=== PATIENT | female | born 1980 | race Caucasian/White ===

== ENCOUNTER 2018-08-11 21:49 | Emergency (ER) | payer OTHER ==
[2018-08-11 21:53] VITALS: BMI 29.7
--- NOTE | 2018-08-11 22:00 | PDOC ---
Rapid Medical Evaluation Chief Complaint: Pain Time Seen by Provider: 08/11/18 21:50 Medical Evaluation: Allergies Allergy/AdvReac Type Severity Reaction Status Date / Time No Known Allergies Allergy Verified 07/14/13 05:59 08/11/18 21:55 S: 38 year old female with generalized abdominal pain x 1 day. O: patient alert o3, generalized pain, doubled over in pain A: abdominal pain P: UA UCX urine . patient to the ER for further management of care. Discharge Disposition - Diagnosis Abdominal pain Qualifiers: Abdominal location: generalized Qualified Code(s): R10.84 - Generalized abdominal pain - Referrals - Patient Instructions - Post Discharge Activity
[2018-08-11] MEDS ORDERED: ONDANSETRON 4 MG/2 ML VIAL IVPUSH ONE (22:34)
[2018-08-11] MEDS ORDERED: morphine CARPU-JECT 4 MG/1 ML DISP.SYRIN IVPUSH ONE (22:34)
[2018-08-11] MEDS ORDERED: SODIUM CHLORIDE 0.9% 500 ML INFUS.BAG IV ONE (22:36)
[2018-08-11] MEDS ORDERED: morphine SULFATE 4 MG/ML VIAL ONE (23:15)
[2018-08-11] MEDS ORDERED: ONDANSETRON 4 MG/2 ML VIAL ONE (23:16)
[2018-08-12 00:25] LABS: BASO % 0.5 % (0-2.0); EOS % 2.3 % (0-4.5); HEMATOCRIT 40.7 % (32.4-45.2); HEMOGLOBIN 13.5 GM/dL (10.7-15.3); LYMPH % 31.4 % (8-40); MCH 29.9 pg (25.7-33.7); MEAN CELL VOLUME 90.5 fl (80-96); MEAN PLT VOLUME 8.6 fl (7.5-11.1); MONO % 7.5 % (3.8-10.2); NEUT % 58.3 % (42.8-82.8); PLATELET COUNT 365 K/MM3 (134-434); RDW 13.8 % (11.6-15.6); WHITE BLOOD COUNT 11.2 K/mm3 (4.0-10.0)
[2018-08-12 01:10] LABS: ALBUMIN 3.1 g/dl (3.4-5.0); ALK PHOS 76 U/L (45-117); ANION GAP 6 MMOL/L (8-16); BILIRUBIN,TOTAL 0.2 mg/dL (0.2-1); BLOOD UREA NITROGEN 10 mg/dL (7-18); CALCIUM 8.3 mg/dL (8.5-10.1); CHLORIDE 104 mmol/L (98-107); CO2 27 mmol/L (21-32); CREATININE 0.6 mg/dL (0.55-1.3); GLUCOSE,RANDOM 103 mg/dL (74-106); LIPASE 102 U/L (73-393); POTASSIUM 3.5 mmol/L (3.5-5.1); SGOT/AST 15 U/L (15-37); SGPT/ALT 21 U/L (13-61); SODIUM 137 mmol/L (136-145)
[2018-08-12 03:17] LABS: URINE APPEARANCE CLEAR; URINE BILIRUBIN NEGATIVE (NEGATIVE); URINE COLOR YELLOW; URINE GLUCOSE (UA) NEGATIVE (NEGATIVE); URINE KETONE NEGATIVE (NEGATIVE)
[2018-08-12 03:18] LABS: URINE LEUK ESTERASE NEGATIVE (NEGATIVE); URINE NITRITE NEGATIVE (NEGATIVE); URINE PROTEIN N (NEGATIVE); URINE UROBILINOGEN 0.2 mg/dL (0.2-1.0)
--- NOTE | 2018-08-12 03:23 | PDOC ---
Documentation entered by Ashley Reynoso SCRIBE, acting as scribe for Susanna Sanabria MD. History of Present Illness - General Chief Complaint: Pain Stated Complaint: ABDOMINAL PAIN Time Seen by Provider: 08/11/18 21:50 History Source: Patient, Family Exam Limitations: No Limitations - History of Present Illness Initial Comments: 08/11/18 22:55 HPI: 38YOF with significant past medical history of HTN, kidney stones presenting with acute onset of diffuse abdominal pain with associated blt lumbar back pain and yellow concentrated urine. no alleviating or exacerbating factors. She notes taking Ibuprofen 600mg x1 at 7pm ~3 hours ago for her symptoms, without relief. Denies fever, chills, chest pain, SOB, palpitation, dizziness, weakness, N, V, D , bladder and bowel problems, leg swelling, No new changes in medications, took AM HCTZ. no travel history or suspicious food intake or sick contacts. no trauma or exertional activity. she works as elementary school registrar. Allergies: None Past Medical History: HTN (compliant with HCTZ) Social history: Lives with family. No tobacco, ETOH or drug use. Surgical history: Abdominoplasty. Meds: as documented in EMR - hctz 25 mg daily, ibuprofen 600mg prn PMD: Dr. Fiorella Mendez LMP: 07/27/2018 - usually regular, missed her menstrual cycle in 06/2018 ROS: GENERAL/CONSTITUTIONAL: No fever or chills. No weakness. no sweats. HEAD, EYES, EARS, NOSE AND THROAT: No change in vision or hearing. No ear pain or discharge. No sore throat or mouth pain. No difficulty swallowing. No congestion. CARDIOVASCULAR: No chest pain or palpitations, syncope or edema. RESPIRATORY: No SOB, cough, wheezing, or hemoptysis. GASTROINTESTINAL: +Abdominal pain. No nausea/vomiting. No diarrhea or constipation. No bloody stools. GENITOURINARY: No hematuria, dysuria, frequency, urgency or other changes. + dark urine. MUSCULOSKELETAL: + Back pain. No neck pain. SKIN: No rash or changes in skin color or lesions. No wounds. NEUROLOGIC: alert and oriented appropriately No headache, dizziness, loss of consciousness, or change in strength/sensation. HEMATOLOGIC/LYMPHATIC: No anemia, easy bruising/bleeding, or history of blood clots. No swollen lymph nodes ALLERGIC/IMMUNOLOGIC: No allergies PSYCH: no anxiety/depression All other systems reviewed and negative, or as documented in HPI. Physical exam: General: +Uncomfortable, colicky appearing, awake and alert HEENT: NCAT, PERRL, EOMI, clear conjunctiva, anicteric, moist mucus membranes, clear oropharynx, no oral lesions.. Neck: neck supple, FROM Resp: CTAB, normal and even respirations, no respiratory distress CVS: RRR, no murmurs, 2+ peripheral pulses throughout, no peripheral edema Abdomen: soft, +diffuse tenderness. no rebound or guarding. No CVAT. Back: +Blt paravertebral lumbar tenderness. Normal ROM MSK: no edema, MCCORMICK x4, ROM intact. No clubbing or cyanosis. normal bulk and tone. Extremities: no calf tenderness Neuro: alert Skin: warm and well perfused, cap refill <2 sec, normal color 08/11/18 23:08 08/11/18 23:08 08/12/18 00:20 Past History - Past Medical History Allergies/Adverse Reactions: Allergies Allergy/AdvReac Type Severity Reaction Status Date / Time No Known Allergies Allergy Verified 08/11/18 21:54 Home Medications: Ambulatory Orders Acetaminophen [Tylenol .Regular Strength -] 325 mg PO Q6H #100 tablet 07/14/13 No Home Medications 0 dose .ROUTE UTDICT 07/14/13 COPD: No - Suicide/Smoking/Psychosocial Hx Smoking History: Never smoked *Physical Exam - Vital Signs Last Vital Signs Temp Pulse Resp BP Pulse Ox 97.5 F L 93 H 20 153/103 H 100 08/11/18 21:50 08/11/18 21:50 08/11/18 21:50 08/11/18 21:50 08/11/18 21:50 Procedures - Bedside Ultrasound Bedside Ultrasound: Gallbladder Remarks: 08/11/18 23:56 POCUS renal exam performed, indication includes abdominal/flank pain. views obtained: bilateral kidneys in short and long axis, bladder. findings: no evidence of hydronephrosis. Impression: no acute pathology POCUS biliary exam: Indication: abdominal pain Views: gallbladder long and short axis, CBD Findings: no stones or GB wall thickening or pericholecystic fluid, normal CBD < 3mm for age. Neg sono murphys Impression: no acute findings. No cholelithiasis or cholecystitis. POCUS aorta: indication: abdominal pain views: prox, mid and distal aorta, short and long axis views Findings: abdominal aorta <2cm, down to bifurcation Impression: no e/o AAA, no acute pathology ED Treatment Course - LABORATORY CBC & Chemistry Diagram: 08/12/18 00:00 08/12/18 00:34 - RADIOLOGY Radiology Studies Ordered: Category Date Time Status ABDOMEN & PELVIS CT WITH CONTR [CT] Stat CT Scan 08/11/18 22:36 Ordered Radiograph Interpretation: 08/12/18 02:30 EXAM: CT ABDOMEN AND PELVIS WITH CONTRAST 1.9 cm hyperattenuating focus in right lobe of liver, possibly a flash-filling hemangioma, focal nodular hyperplasia, or adenoma. Consider further evaluation with liver protocol MRI. No bowel obstruction, colitis, diverticulitis, free fluid or free air. Normal appendix. Unremarkable pancreas, kidneys and gallbladder. Ovarian follicles measuring up to 1.5 cm on right and 1.4 cm on left. Surgical changes abdominal wall. Read by: Valarie Mancia M.D. Medical Decision Making - Medical Decision Making 08/11/18 23:12 I, Susanna Sanabria MD, attest that this document has been prepared under my direction and personally reviewed by me in its entirety. I further attest, that it accurately reflects all work, treatment, procedures and medical decision -making performed by me. See HPI for details Vital signs reviewed, wnl. mildly hypertensive, but also colicky,in pain. no fever, no systemic findings DDx abdominal pain: Renal colic, obstructive ureterolithiasis, biliary colic, metabolic/electrolyte derangements. GERD, PUD, esophageal spasm, pancreatitis, hepatitis, constipation, colitis, gastroenteritis, cholecystitis, UTI, pyelonephritis, ileus, SBO, perf viscus, hernia, appendicitis, diverticulitis Prior notes reviewed, including admissions, discharges and consultations. laboratory results and imaging reviewed, basic labs and lytes wnl, notable for normal LFTs and lipase UA_neg for infection. preg test neg ED course - IVF, analgesia and zofran, reassess - POCUS abdomen limited exam without hydronephrosis bilaterally, no pelvic FF, normal GB without stones or sludge or e/o cholecystitis, not in age group for AAA, but aorta diameter wnl, <3cm. - CT a/p to eval for renal vs abdominal pathology, appears colicky, could be kidney stone, but also alternatives; official read: CT abdomen and pelvis with unremarkable pancreas/kidney/ gallbladder. Ovarian follicles are visualized, otherwise unremarkable. Incidental liver hemangioma versus nodule versus adenoma, further follow-up warranted. No evidence of obstruction, colitis diverticulitis free fluid or air , normal appendix is noted. Tummy tuck previously with postsurgical findings in the abdominal wall without evidence of hernia or abdominal pathology. small hiatal hernia. - on reeval, VS normalized. pain controlled. CT unremarkable, incidentalomas above. dispo: Pt informed of my clinical impression, treatment recommendations and disposition plan. All questions answered to patient's satisfaction and expressed understanding and comfort with this. Reasons for returning to the ED sooner discussed including new or persistent/worsening symptoms with the patient otherwise, follow up with primary care physician and GI specialist. At the time of discharge, the patient is alert, clinically improved, tolerating po and verbalizes understanding of instructions, satisfied with the care received and felt comfortable with the plan. Patient does not suffer from an acute life- threatening medical condition at this time she is safe for outpatient follow- up. 08/12/18 02:27 08/12/18 03:20 08/12/18 03:23 *DC/Admit/Observation/Transfer Diagnosis at time of Disposition: Back pain Abdominal pain Qualifiers: Abdominal location: generalized Qualified Code(s): R10.84 - Generalized abdominal pain - Discharge Dispostion Disposition: HOME Condition at time of disposition: Improved Decision to Admit order: No - Referrals Referrals: [facility] [place] [facility] [Provider Group] [facility] [Provider Group] Humberto Flor MD [Staff Physician] - - Patient Instructions Printed Discharge Instructions: DI for Low Back Pain, DI for Abdominal Pain- Adult Additional Instructions: 1) Please follow-up with your primary care doctor in the next 1-2 days. Please call tomorrow for for any urgent issues. 2) You were given a copy of the tests performed today. Please bring the results with you and review them with your primary care doctor. Your laboratory / imaging results were normal, including your blood work, urine and CT imaging 3) If you have any worsening of symptoms or any other concerns please return to the ED immediately. Return if worsening symptoms including fevers, headache, vomiting, visual or hearing disturbances, abdominal pain, chest pain, shortness of breath, syncope, dehydration, inability to take things by mouth/vomiting, altered mental status, or worsening concerning symptoms. 4) Please continue taking your home medications as directed. side effects may include upset stomach, abdominal pain, vomiting, or diarrhea. do not drink alcohol with your medications. Please take IBUPROFEN (aka MOTRIN, ADVIL, ALEVE) 400 mg and/or ACETAMINOPHEN ( aka Tylenol) 650-975 mg every 6 hours, as needed, for pain. Please do not take these medications if you have a bleeding disorder, stomach or GI ulcer problems or liver disease. Stay well hydrated and rest adequately. an appointment. If you cannot follow-up with your primary care doctor please return to the ED - Post Discharge Activity Susanna Sanabria MD: This documentation has been prepared by the Edgardo ruiz Nirvannie, SCRIBE, under my direction and personally reviewed by me in its entirety. I confirm that the documentation accurately reflects all work, treatment, procedures, and medical decision making performed by me.
[2018-08-12 03:36] VITALS: BP 130/82; PULSE 77; TEMP 98
== END 2018-08-12 03:47 | disposition home or self-care (01) ==
LOC: JER 21:49
PROC: BT43ZZZ Ultrasonography of Bilateral Kidneys (ICD-10-PCS; principal; 2018-08-11)
PROC: BF43ZZZ Ultrasonography of Gallbladder and Bile Ducts (ICD-10-PCS; 2018-08-11)
PROC: BW40ZZZ Ultrasonography of Abdomen (ICD-10-PCS; 2018-08-11)
DX: R10.84 Generalized abdominal pain (principal); I10 Essential (primary) hypertension; Z87.442 Personal history of urinary calculi
CPT/HCPCS: 36415; 74177-TC; 80053; 81003; 83690; 84703; 85025; 87086; 99283-25

== ENCOUNTER 2018-10-15 09:16 | Day surgery (SDC) | payer OTHER ==
[2018-10-14 15:36] VITALS: BMI 34.7
[2018-10-15 10:14] LABS: BASO % 0.9 % (0-2.0); HEMATOCRIT 40.4 % (32.4-45.2); HEMOGLOBIN 13.5 GM/dL (10.7-15.3); LYMPH % 33.6 % (8-40); MCH 29.5 pg (25.7-33.7); MCHC 33.4 g/dl (32.0-36.0); MEAN CELL VOLUME 88.1 fl (80-96); MONO % 7.2 % (3.8-10.2); NEUT % 55.3 % (42.8-82.8); PLATELET COUNT 358 K/MM3 (134-434); RBC 4.58 M/mm3 (3.60-5.2); RDW 14.1 % (11.6-15.6); WHITE BLOOD COUNT 6.6 K/mm3 (4.0-10.0)
[2018-10-15 10:58] LABS: INR 1.09 (0.83-1.09); PROTHROMBIN TIME (PATIENT) 12.9 SEC (9.7-13.0)
[2018-10-15 12:32] VITALS: PULSE 78
[2018-10-15 12:51] VITALS: BP 120/80; TEMP 98
== END 2018-10-15 12:15 | disposition home or self-care (01) ==
LOC: JRADIR 09:16
PROVIDERS: ATTEND Internal Medicine Gastroenterology
PROC: BF45ZZZ Ultrasonography of Liver (ICD-10-PCS; principal; 2018-10-15)
DX: D37.6 Neoplasm of uncertain behavior of liver, gallbladder and bile ducts (principal); Z53.8 Procedure and treatment not carried out for other reasons
CPT/HCPCS: 36415; 47000; 76705-TC; 84703; 85025; 85610